=== PATIENT | male | born 1970 | race Caucasian/White ===

== ENCOUNTER 2021-02-21 09:21 | Observation (INO) | payer OTHER, SELFPAY ==
[2021-02-21] VITALS (15 sets, daily range): BP systolic 105–163; BP diastolic 74–98; PULSE 85–103; RESP 14–33; TEMP 36.3–36.8; O2SAT 93–98; BMI 39.4; BMI 38.2
--- NOTE | 2021-02-21 09:23 | NURSING ---
NO OLD EKGS
--- NOTE | 2021-02-21 09:31 | EKG12_ITS ---
Test Reason : CHEST PAIN Blood Pressure : / mmHG Vent. Rate : 104 BPM Atrial Rate : 104 BPM P-R Int : 134 ms QRS Dur : 074 ms QT Int : 324 ms P-R-T Axes : 024 013 067 degrees QTc Int : 426 ms Sinus tachycardia Otherwise normal ECG Confirmed by GENNA BECKETT, NEYMAR ([id number]), restaurant expeditor CLAUDIO DAMON ([id number]) on 02/23/2021 9:54:52 AM Referred By: APRIL Confirmed By:NEYMAR VAIL MD
--- NOTE | 2021-02-21 09:31 | ED.VIS.CHEST ---
HPI History of Present Illness Chief Complaint: Chest Pain Informant: patient Onset/Context/Timing Onset: Today (Within the past hour) Activity at onset: activity on onset (Standing outside in hot humid weather at work) Timing: Continuous Quality: Positive for Heaviness (Like a freight liner sitting on my chest) Location: Substernal (With radiation to left shoulder) Current Severity: Mild Maximum Severity: Severe Worsened By: Nothing; Not Worsened By Movement of Arm, Movement of Torso and Breathing Relieved By: Nothing Associated Symptoms: Positive for Diaphoresis and Dyspnea; Negative for Nausea, Lightheadedness and Palpitations Narrative Narrative: Patient works at a [employer], it was the beginning of the day early in the morning, son was out in hot and humid, he was standing there when he suddenly started feeling weak and short of breath, quickly followed by nonpleuritic chest heaviness and then his left shoulder started hurting with it. He has had no treatment yet, but comes to the emergency department feeling improved compared with earlier but still symptomatic. He is a 2 pack-a-day smoker, history of high blood pressure, edema in his legs for which he is on a diuretic, no known heart disease. He has never had a blood clot in his leg or his lung that he knows of, but he states he travels to a different race track every weekend, this past 1 couple days ago he went to [address] close to [place], [place], which is approximately 4-5 hours away. [facility] Medical History Congestive heart failure (CHF) Hypertension Home Medications hydrochlorothiazide 25 mg PO DAILY 02/21/21 [History Last Taken Unknown] Allergy/AdvReac Type Severity Reaction Status Date / Time No Known Allergies Allergy Verified 02/21/21 09:23 Social History Smoking Status: Current every day smoker tobacco type: cigarettes ROS ROS ED Constitutional Constitutional ED: Reports malaise; Denies chills or fever(s) Eyes Eyes: Denies change in vision or diplopia ENT ENT ED: Denies rhinorrhea or sore throat Cardiovascular Cardiovascular: Reports chest pain; Denies palpitations Respiratory/Chest Respiratory/Chest: Reports cough, dyspnea and other Details: Cough is nonproductive and chronic and no worse than usual Gastrointestinal Gastrointestinal: Denies abdominal pain, diarrhea, nausea or vomiting Genitourinary Genitourinary ED: Denies dysuria or hematuria Musculoskeletal Musculoskeletal: Reports other Details: Left shoulder pain see HPI ; Denies back pain or neck pain Integumentary Denies abscess or rash Neurologic Neurologic: Denies headache(s), paresthesias or weakness Psychiatric Psychiatric: Denies anxiety or suicidal thoughts EXAM Physical Exam Const Vital Signs: 02/21/21 09:23 02/21/21 09:26 02/21/21 09:36 Temperature 98.2 F Temperature Source Oral Pulse Rate 103 H Respiratory Rate 33 H Respiratory Effort Normal Non-Labored Blood Pressure 147/98 H Blood Pressure Mean 114 Pulse Ox 95 93 Oxygen Delivery Method Room Air Room Air 02/21/21 09:44 02/21/21 09:46 02/21/21 10:25 Temperature Temperature Source Pulse Rate 101 H 102 H 100 Respiratory Rate 23 H Respiratory Effort Blood Pressure 163/92 H 132/81 H 105/81 H Blood Pressure Mean 89 Pulse Ox 93 Oxygen Delivery Method Room Air Positive well nourished and well developed General Appearance ED: well developed and NAD HEENT Reports moist mucous membranes normocephalic and atraumatic Eyes PERRL and EOMs intact bilaterally Neck full ROM, supple and no JVD Resp Resp Narrative: Tachypneic no distress. Expiratory wheezes throughout all [place]. No rales or rhonchi. Cardio regular rate, regular rhythm and no murmurs Rate: tachycardic GI non-tender and non-distended GI Narrative: Protuberant with truncal obesity Auscultation: normoactive bowel sounds Palpation: soft Back/Spine no CVA tenderness General Back: other FROM Extremity normal to inspection and full ROM Extremity Narrative: Nontender left shoulder General Extremety ED: Yes edema; Negative for pulses abnormal or tenderness General Extremity: edema bilateral lower extremity Details: trace; Negative for pulses abnormal Neuro oriented x3, CN's II-XII intact bilaterally and no sensory deficits noted Sensorium / Orientation: awake and alert Motor Exam: strength 5/5 throughout Skin no rashes or lesions noted and no wounds Heart Score History: Highly Suspicious ECG: Normal Age: >45 - <65 years Risk Factors: >/= 3 Risk Factors or History of CAD Troponin: </= Normal Limit Score: 5 MDM MDM MDM Narrative Medical decision making narrative: Patient was given a nitroglycerin and did have improvement, his discomfort was barely there and he declined more nitroglycerin after the first 1. He has a negative initial troponin, but he just had symptoms prior to arrival. His D-dimer is within normal limits. His resting tachycardia improved. I am concerned about his symptoms, they are consistent with unstable angina. On further discussion with the patient, he has been having episodes like this, his last one was several days ago but this 1 was worse. This scared him. I think he should be admitted for provocative testing and further evaluation. Discussed with hospitalist who was in agreement and the patient as well. Lab Data Attestation: I reviewed the patient's lab results. Labs: Laboratory Results - last 24 hr 02/21/21 02/21/21 02/21/21 09:25 09:25 09:25 WBC 10.1 RBC 5.38 Hgb 16.2 Hct 48.4 MCV 90.0 MCH 30.1 MCHC 33.5 RDW Std Deviation 42.0 RDW Coeff of Sebastien 12.7 Plt Count 288 MPV 8.9 Immature Gran % (Auto) 0.500 Neut % (Auto) 52.6 Lymph % (Auto) 36.3 [place] % (Auto) 5.8 Eos % (Auto) 3.7 Baso % (Auto) 1.1 H Absolute Neuts (auto) 5.3 Absolute Lymphs (auto) 3.67 Nucleated RBC % 0 D-Dimer Quant (PE/DVT) Sodium 137 Potassium 4.2 Chloride 105 Carbon Dioxide 27.0 Anion Gap 5 BUN 14 Creatinine 0.80 Estim Creat Clear Calc 100.80 Est GFR (MDRD) Af Amer 131 Est GFR (MDRD) Non-Af 108 BUN/Creatinine Ratio 17.4 Glucose 243 H Calcium 8.7 Troponin I High Sens 6 B-Natriuretic Peptide 3.8 02/21/21 09:30 WBC RBC Hgb Hct MCV MCH MCHC RDW Std Deviation RDW Coeff of Sebastien Plt Count MPV Immature Gran % (Auto) Neut % (Auto) Lymph % (Auto) [place] % (Auto) Eos % (Auto) Baso % (Auto) Absolute Neuts (auto) Absolute Lymphs (auto) Nucleated RBC % D-Dimer Quant (PE/DVT) 0.37 Sodium Potassium Chloride Carbon Dioxide Anion Gap BUN Creatinine Estim Creat Clear Calc Est GFR (MDRD) Af Amer Est GFR (MDRD) Non-Af BUN/Creatinine Ratio Glucose Calcium Troponin I High Sens B-Natriuretic Peptide Radiography Chest X-Ray - ED: 1 View, Read by ED Physician and No Acute Disease Diagnostic Testing: Radiology Impression Chest X-Ray 02/21/21 09:55 IMPRESSION: Thickening of the right minor fissure. Increased markings at the left lung base suggestive of either linear atelectasis and/or early infiltrate. Electronically Signed: Danie Brannon MD at 10:28 EDT , Service support , EKG Initial EKG: Interpretation: No Acute Injury Pattern and Sinus Tachycardia Comments: Normal axis and intervals Discharge Plan Triage Chief Complaint: Chest Pain ED Provider: Beny Riddle Dx/Rx/DC Orders Clinical Impression: Unstable angina Prescriptions: No Action hydrochlorothiazide 25 mg tablet 25 mg PO DAILY RF: 0 Primary Care Provider: [facility] Referrals: [facility] [Primary Care Provider] - Disposition Disposition: Acute Care [facility]
[2021-02-21 09:37] LABS: Absolute Lymphocyte Count 3.67 X10^3/uL (0.83-4.51); Absolute Neutrophil Count 5.3 X10^3/uL (2.0-7.7); Basophil# 0.11 X10^3/uL; Basophil% 1.1 % (0-1); Eosinophil# 0.37 X10^3/uL; Eosinophils% 3.7 % (0-5); Hematocrit 48.4 % (40-54); Hemoglobin 16.2 g/dL (13.0-16.5); Lymphocyte # 3.67 X10^3/ul (0.83-4.51); Lymphocyte % 36.3 % (19-41); Mean Corp Hgb Conc 33.5 g/dL (32-36); Mean Corpuscular Hgb 30.1 pg (27.0-32.0); Mean Platelet Vol. 8.9 fl (6.2-12.0); Monocyte# 0.59 X10^3/uL; Monocyte% 5.8 % (0-10); NRBC Flagged by Analyzer 0 % (0-5); Neutrophil # 5.31 X10^3/uL (2.7-7.7); Neutrophil % 52.6 % (47-70); Platelet Count 288 K/mm3 (150-450); RBC Distribution Width CV 12.7 % (11.6-14.6); Red Blood Count 5.38 M/mm3 (4.6-6.2); White Blood Count 10.1 K/mm3 (4.4-11.0)
[2021-02-21] MEDS: Aspirin 81 MG TAB.CHEW 324 MG PO (09:41)
[2021-02-21] MEDS: Nitroglycerin SL (ED/IMG/CATH) 0.4 MG TABLET SL ×2 (09:44→09:46)
[2021-02-21 09:55] LABS: Anion Gap 5 (5-15); BUN 14 mg/dL (7-18); BUN/Creat Ratio 17.4 RATIO (10-20); Calcium,Total 8.7 mg/dL (8.5-10.1); Chloride 105 mmol/L (98-107); EST Glomerular Filtration Rate 108 mL/min (>60); Est Glom Filt Rate - Afr Amer 131 mL/min (>60); Glucose 243 mg/dL (74-106); Potassium 4.2 mmol/L (3.5-5.1); Sodium Level 137 mmol/L (136-145); Troponin-I HS 6 pg/mL (3.0-78.0)
--- NOTE | 2021-02-21 09:55 | RAD_ITS ---
STUDY: X-RAY CHEST REASON FOR EXAM: Male, 50 years old. Chest pain TECHNIQUE: Single AP portable view of the chest. COMPARISON: None. FINDINGS: EKG electrodes are seen. There is elevation of the right hemidiaphragm thickening of the right minor fissure. Mild degree of increased markings at the left lung base suggestive of either basilar atelectasis and/or early infiltrate. There is no demonstrated pleural abnormality. Normal size heart. Normal mediastinum and lilia. Normal visualized pulmonary arteries. Normal visualized aortic arch and descending thoracic aorta. Normal visualized thoracic spine. Normal visualized ribs, clavicles, and shoulders. There is no demonstrated abnormality of the visualized soft tissue structures of the upper abdomen. RAD/Chest 1 View (Portable) IMPRESSION: Thickening of the right minor fissure. Increased markings at the left lung base suggestive of either linear atelectasis and/or early infiltrate. Electronically Signed: Danie Brannon MD at 10:28 EDT , Service support ,
[2021-02-21 09:58] LABS: D-Dimer Quantitative (DVT/PE) 0.37 FEU/ug/m (0.27-0.49)
[2021-02-21 10:09] LABS: BNP,B-Type NATRIURETIC PEPTIDE 3.8 pg/mL (0-100)
--- NOTE | 2021-02-21 11:07 | HP.PCM.HOS_ITS ---
HPI - General General Date of Admission: 02/21/21 Date of Service: 02/21/21 Chief Complaint: Chest pain HPI Narrative BART VALENTE, is a 50 M with past medical history significant for hypertension, prediabetes, obesity with BMI of 39.5, tobacco dependence who presented with chest pain. Patient reports going to work on the morning of his presentation he later developed significant chest pain which he described as as pressure located on the left chest. He also did experience some dizziness as well as radiation of his pain down his right arm. He presented to the emergency department as a result. Initial set of EKG and cardiac enzymes came back unremarkable. On further questioning patient did admit to frequent episodes of chest pain both at rest as well as with activity. He was admitted to monitored bed for subsequent inpatient management. [facility] Medical History (Updated 02/21/21 @ 11:[address] José Antonio Mo MD) Congestive heart failure (CHF) Hypertension Home Medications hydrochlorothiazide 25 mg PO DAILY 02/21/21 [History Last Taken Unknown] Allergy/AdvReac Type Severity Reaction Status Date / Time No Known Allergies Allergy Verified 02/21/21 09:23 Family History (Updated 02/21/21 @ 11:[address] José Antonio Mo MD) Father Heart disease Social History Smoking Status: Current every day smoker tobacco type: cigarettes ROS ROS Narrative GENERAL: denies fever, chills, night sweats, HEENT: denies headache, sinus congestion, RESPIRATORY: d shortness of breath, dyspnea on exertion CARDIAC: chest pain, GASTROINTESTINAL: denies abdominal pain, GENITOURINARY: denies dysuria, urgency, frequency, EXTREMITY: denies swelling MUSCULOSKELETAL: denies current joint pain or tenderness NEUROLOGIC: denies focal numbness, weakness, tingling HEMATOLOGIC: denies easy bruising and/or hemorrhage INTEGUMENT: denies rashes PSYCHIATRIC: denies suicidal or homicidal ideation Vital Signs Vital Signs Vital Signs: 02/21/21 09:23 02/21/21 09:26 02/21/21 09:36 Temperature 98.2 F Temperature Source Oral Pulse Rate 103 H Respiratory Rate 33 H Respiratory Effort Normal Non-Labored Blood Pressure 147/98 H Blood Pressure Mean 114 Pulse Ox 95 93 Oxygen Delivery Method Room Air Room Air 02/21/21 09:44 02/21/21 09:46 02/21/21 10:25 Temperature Temperature Source Pulse Rate 101 H 102 H 100 Respiratory Rate 23 H Respiratory Effort Blood Pressure 163/92 H 132/81 H 105/81 H Blood Pressure Mean 89 Pulse Ox 93 Oxygen Delivery Method Room Air Weight Weight: 110.9 kg Body Mass Index (BMI) 39.4 Physical Exam Narrative GENERAL: cooperative HEENT: Atraumatic; EYES; Anicteric, Normal Conjunctiva NECK; supple, normal thyroid, RESPIRATORY: Diminished to auscultation CARDIOVASCULAR: Regular S1 S2, GI: soft, normoactive bowel sounds, : No Renal angle tenderness; EXTREMITIES: No edema, no clubbing, MUSCULOSKELETAL: no muscle waisting NEURO: Awake; no lateralizing signs. SKIN: No Rash PSYCH; Flat affect Results Lab / Micro Data Result Diagrams: 02/21/21 09:25 02/21/21 09:25 Labs: Laboratory Results - last 24 hr 02/21/21 09:25: WBC 10.1, RBC 5.38, Hgb 16.2, Hct 48.4, MCV 90.0, MCH 30.1, MCHC 33.5, RDW Std Deviation 42.0, RDW Coeff of Sebastien 12.7, Plt Count 288, MPV 8.9, Immature Gran % (Auto) 0.500, Neut % (Auto) 52.6, Lymph % (Auto) 36.3, [place] % (Auto) 5.8, Eos % (Auto) 3.7, Baso % (Auto) 1.1 H, Absolute Neuts (auto) 5.3, Absolute Lymphs (auto) 3.67, Nucleated RBC % 0 02/21/21 09:25: Sodium 137, Potassium 4.2, Chloride 105, Carbon Dioxide 27.0, Anion Gap 5, BUN 14, Creatinine 0.80, Estim Creat Clear Calc 100.80, Est GFR (MDRD) Af Amer 131, Est GFR (MDRD) Non-Af 108, BUN/Creatinine Ratio 17.4, Glucose 243 H, Calcium 8.7, Troponin I High Sens 6 02/21/21 09:25: B-Natriuretic Peptide 3.8 02/21/21 09:30: D-Dimer Quant (PE/DVT) 0.37 Radiology Impression Chest X-Ray 02/21/21 09:55 IMPRESSION: Thickening of the right minor fissure. Increased markings at the left lung base suggestive of either linear atelectasis and/or early infiltrate. Electronically Signed: Danie Brannon MD at 10:28 EDT , Service support , Assessment & Plan Assessment/Plan (1) Unstable angina: (2) Hypertension: (3) Diabetes mellitus, type 2: (4) Obesity (BMI 35.0-39.9 without comorbidity): (5) Tobacco dependence: PLAN: Patient is a 50-year-old gentleman presenting with chest pain 1. Chest pain ?Patient initial set of EKG cardiac enzymes came back unremarkable however his history is of significant concern and admitted to a monitored bed repeat EKG and serial cardiac enzymes ordered. Also did request for 2D echo. Given the nature of patient presentation consult was placed to cardiology. Decision as to whether patient undergoes further evaluation either by nuclear stress test or left heart catheterization deferred to cardiology 2. New onset diabetes mellitus type 2 ?Patient presented blood glucose level was 243. He had previously been diagnosed with prediabetes according to him however currently not on any medications. Did order hemoglobin A1c and patient placed on Accu-Cheks before meals and at bedtime with sliding scale coverage 3. Hypertension - Blood pressure controlled, home medications continued with dose adjustment as needed 4. Obesity with BMI of 39.5 ?Weight loss advised 5. Tobacco dependence - Counseled on cessation, offered nicotine patch for tobacco cravings 6. DVT prophylaxis - On enoxaparin Charges/Coding Visit Charges OBSV E&M: 64315 Initial observation care L3
--- NOTE | 2021-02-21 11:10 | NURSING ---
DR ANDREA IN ER
--- NOTE | 2021-02-21 11:18 | NURSING ---
PCU OBS KITTOE UNSTABLE ANGINA
--- NOTE | 2021-02-21 11:23 | NURSING ---
CALLED LORY VEGA. TALKED TO PRO IN BED CONTROL. GAVE HER THE INFO WILL FAX CHART TO [phone]
--- NOTE | 2021-02-21 11:51 | EKG12_ITS ---
Test Reason : Blood Pressure : / mmHG Vent. Rate : 088 BPM Atrial Rate : 088 BPM P-R Int : 144 ms QRS Dur : 084 ms QT Int : 358 ms P-R-T Axes : 024 007 034 degrees QTc Int : 433 ms Sinus rhythm with occasional Premature ventricular complexes Otherwise normal ECG Confirmed by GENNA BECKETT, NEYMAR ([id number]), subeditor CLAUDIO DAMON ([id number]) on 02/23/2021 10:10:46 AM Referred By: ALCIDES Confirmed By:NEYMAR VAIL MD
--- NOTE | 2021-02-21 11:51 | ECHOD_ITS ---
Reason For Study: CHEST PAIN Procedure This was a 2D Doppler, Color Flow transthoracic echocardiogram. The study was technically difficult. Exam performed portable in patient room. Left Ventricle Normal LV size. Left ventricular systolic function is normal. The estimated ejection fraction is 65 %. Transmitral doppler flow suggestive of impaired relaxation of left ventricle. No regional wall motion abnormalities noted. Right Ventricle Normal RV size. Normal systolic function. Atria Normal left atrium. Normal right atrium. No doppler evidence for ASD. Mitral Valve There is no mitral annular calcification. Normal mitral valve. Trivial mitral valve insufficiency. Tricuspid Valve Normal tricuspid valve. Trivial tricuspid valve insufficiency. Right ventricular systolic pressure estimated to be 30 mmHg. Aortic Valve Trisinus/trileaflet aortic valve. Normal aortic valve. Pulmonic Valve The pulmonic valve is not well visualized. Trivial pulmonic valve insufficiency. Great Vessels Normal sized aortic root. Pericardium/Pleural No pericardial effusion. MMode/2D Measurements & Calculations LVIDd: 4.2 cm IVSd: 1.0 cm Ao root diam: 2.9 cm LVIDs: 3.1 cm LVPWd: 1.1 cm RVDd: 3.3 cm FS: 26.6 % LAV(MOD-bp): 46.1 ml LA A4 area: 15.0 cm2 LA dimension(2D): 3.4 cm LAV(MOD-bp) Indexed: 21.2 ml/m2 LAV(MOD-sp2): 41.8 ml LAV(MOD-sp4): 42.3 ml RA A4 area: 12.6 cm2 Time Measurements MV dec time: 0.19 sec Doppler Measurements & Calculations MV E max pepe: 51.5 cm/sec Lat Peak E' Pepe: 10.2 cm/sec Med Peak E' Pepe: 9.2 cm/sec MV A max pepe: 57.3 cm/sec E/E' lat: 5.1 E/E' med: 5.6 MV E/A: 0.90 Ao V2 max: 132.2 cm/sec LV V1 max: 125.1 cm/sec PA V2 max: 98.3 cm/sec Ao max P.6 mmHg LV V1 max P.3 mmHg TR max pepe: 261.9 cm/sec TR max P.4 mmHg ECHO/Echo Complete Interpretation Summary The study was technically difficult. Left ventricular systolic function is normal. The estimated ejection fraction is 65 %. Trivial mitral valve insufficiency. Trivial tricuspid valve insufficiency. Trivial pulmonic valve insufficiency. Right ventricular systolic pressure estimated to be 30 mmHg. Transmitral doppler flow suggestive of impaired relaxation of left ventricle Ordering Physician: José Antonio Mo Referring Physician: [facility] Performed By: Fabby Maldonado RDCS, RVT
[2021-02-21 12:38] LABS: Troponin-I HS 5 pg/mL (3.0-78.0)
[2021-02-21] MEDS: Enoxaparin 40 MG/0.4 ML Syringe SC ×2 (12:39→21:24)
[2021-02-21 12:55] LABS: Bedside Glucose 149 mg/dL (70-110)
[2021-02-21 13:14] LABS: Probe Check PASS; Specimen Processing Control PASS
--- NOTE | 2021-02-21 14:53 | PCM.CONS.C ---
Assessment & Plan Assessment/Plan (1) Unstable angina: PLAN: The patient presents with symptoms concerning for unstable angina pectoris superimposed upon multiple cardiovascular risk factors. At the moment his cardiac enzymes are negative and his ECG demonstrates no acute changes. He will continue to be monitored. He will continue medical therapy as deemed appropriate. Internal medicine has requested cardiovascular consultation to consider further evaluation with diagnostic cardiac catheterization. This may not be unreasonable based upon the aforementioned information. The procedure and risk was discussed with the patient. He was agreeable to this approach. (2) Hypertension: PLAN: The patient has a history of hypertension. He will continue medical therapy with adjustment as deemed appropriate. (3) Diabetes mellitus, type 2: PLAN: The patient will continue evaluation care per internal medicine. (4) Tobacco dependence: PLAN: The patient has been encouraged to discontinue his tobacco use. (5) Obesity (BMI 35.0-39.9 without comorbidity): PLAN: Unfortunately the patient is obese. He states he is trying to adjust his diet to bring his medical diagnoses and his weight under better control. Addt'l Comments The patient's case has been discussed and reviewed with the patient and Dr. Mo. This note was generated using a voice recognition system and there may be incorrect words, spelling or punctuation that were not noted when reviewing the office note prior to saving. HPI Consult Data Date of Consult: 02/21/21 HPI Narrative HPI Narrative: BART VALENTE, is a 50 year old white male who presents for cardiovascular consultation based upon concerns of unstable angina pectoris superimposed upon a history of hypertension, diabetes mellitus, tobacco dependence, and a family history of premature cardiovascular disease. The patient states that he has been having episodes of nonexertional chest discomfort rating to his left shoulder and left upper extremity associated with shortness of breath/dyspnea and diaphoresis. He had another such episode today at work. He states he drove himself to the hospital. He was evaluated by the emergency department staff and by internal medicine. He was thought to have concerns of unstable angina pectoris. He was placed in the PCU for further evaluation and care. His initial cardiac enzymes were negative. His ECG demonstrated sinus rhythm with no acute ECG changes. He states he follows through the [facility]. He knows they have been adjusting his medicines to assist with blood pressure control. They have been encouraging him on dietary adjustments to assist with diabetes mellitus control. He also states that he has a family history of premature cardiovascular disease with each generation experiencing some cardiovascular event and/or earlier than the previous generation. He denies any orthopnea or PND. He states he has had waxing and waning peripheral pitting edema in the past. There is been no near syncope or syncope. He states that he feels better at the moment. [facility] Medical History (Updated 02/21/21 @ 11:[address] José Antonio Mo MD) Congestive heart failure (CHF) Hypertension Home Medications aspirin 81 mg PO DAILY 02/21/21 [History Last Taken Unknown] celecoxib [Celebrex] 200 mg PO DAILY 02/21/21 [History Last Taken Unknown] gabapentin 200 mg PO QHS PRN 02/21/21 [History Last Taken Unknown] hydrochlorothiazide 25 mg PO DAILY 02/21/21 [History Last Taken Unknown] losartan 25 mg PO DAILY 02/21/21 [History Last Taken Unknown] sertraline [Zoloft] 50 mg PO QHS 02/21/21 [History Last Taken Unknown] Allergy/AdvReac Type Severity Reaction Status Date / Time No Known Allergies Allergy Verified 02/21/21 09:23 Family History (Updated 02/21/21 @ 11:[address] José Antonio Mo MD) Father Heart disease Social History Smoking Status: Current every day smoker tobacco type: cigarettes ROS Constitutional Constitutional: Reports as per HPI Eyes Eyes: Reports as per HPI ENT HEENT: Reports as per HPI Cardiovascular Cardiovascular: Reports chest pain, chest pain at rest, diaphoresis, dyspnea and dyspnea at rest Respiratory/Chest Respiratory/Chest: Reports dyspnea Gastrointestinal Gastrointestinal: Reports as per HPI Genitourinary Genitourinary: Reports as per HPI Musculoskeletal Musculoskeletal: Reports as per HPI Integumentary Integumentary: Reports as per HPI Neurologic Neurologic: Reports as per HPI Physical Exam Const alert, oriented x3 and no apparent distress Orientation / Consciousness: awake HEENT normocephalic, head/scalp atraumatic and hearing grossly normal bilaterally Eyes PERRL, EOMs intact bilaterally and conjunctivae normal Neck full ROM, supple and no JVD Resp normal respiratory effort and clear to auscultation bilaterally Cardio regular rate, regular rhythm, S1 normal heart sound and S2 normal heart sound GI normal to inspection, nondistended, normoactive bowel sounds Extremity General Extremity: edema bilateral lower extremity Details: trace Neuro CN's II-XII intact bilaterally Objective Data Vital Signs: Vital Signs Temp Pulse Resp BP Pulse Ox 98.1 F 87 18 141/92 H 95 02/21/21 12:22 02/21/21 12:22 02/21/21 12:22 02/21/21 12:22 02/21/21 12:22 Oxygen Delivery Method Room Air Weight: 236 lb 12.423 oz Body Mass Index (BMI) 38.2 Lab / Micro Data Result Diagrams: 02/21/21 09:25 02/21/21 09:25 Labs: Laboratory Results - last 24 hr 02/21/21 09:25: WBC 10.1, RBC 5.38, Hgb 16.2, Hct 48.4, MCV 90.0, MCH 30.1, MCHC 33.5, RDW Std Deviation 42.0, RDW Coeff of Sebastien 12.7, Plt Count 288, MPV 8.9, Immature Gran % (Auto) 0.500, Neut % (Auto) 52.6, Lymph % (Auto) 36.3, [place] % (Auto) 5.8, Eos % (Auto) 3.7, Baso % (Auto) 1.1 H, Absolute Neuts (auto) 5.3, Absolute Lymphs (auto) 3.67, Nucleated RBC % 0 02/21/21 09:25: Sodium 137, Potassium 4.2, Chloride 105, Carbon Dioxide 27.0, Anion Gap 5, BUN 14, Creatinine 0.80, Estim Creat Clear Calc 100.80, Est GFR (MDRD) Af Amer 131, Est GFR (MDRD) Non-Af 108, BUN/Creatinine Ratio 17.4, Glucose 243 H, Calcium 8.7, Troponin I High Sens 6 02/21/21 09:25: B-Natriuretic Peptide 3.8 02/21/21 09:30: D-Dimer Quant (PE/DVT) 0.37 02/21/21 11:27: COVID-19 (HINA) Negative 02/21/21 12:07: Troponin I High Sens 5 02/21/21 12:47: POC Glucose 149 H Cardiology Labs/Tests 02/21/21 09:25: WBC 10.1, RBC 5.38, Hgb 16.2, Hct 48.4, MCV 90.0, MCH 30.1, MCHC 33.5, Plt Count 288, MPV 8.9, Immature Gran % (Auto) 0.500, Neut % (Auto) 52.6, Lymph % (Auto) 36.3, [place] % (Auto) 5.8, Eos % (Auto) 3.7, Baso % (Auto) 1.1 H, Absolute Neuts (auto) 5.3, Nucleated RBC % 0 02/21/21 09:25: Sodium 137, Potassium 4.2, Chloride 105, Carbon Dioxide 27.0, Anion Gap 5, BUN 14, Creatinine 0.80, Est GFR (MDRD) Af Amer 131, Est GFR (MDRD) Non-Af 108, BUN/Creatinine Ratio 17.4, Glucose 243 H, Calcium 8.7 02/21/21 09:25: B-Natriuretic Peptide 3.8 02/21/21 09:30: D-Dimer Quant (PE/DVT) 0.37 Rhythm: Sinus rhythm EKG: Sinus rhythm Radiography Diagnostic Testing: Radiology Impression Chest X-Ray 02/21/21 09:55 IMPRESSION: Thickening of the right minor fissure. Increased markings at the left lung base suggestive of either linear atelectasis and/or early infiltrate. Electronically Signed: Danie Brannon MD at 10:28 EDT , Service support ,
[2021-02-21] MEDS: Metoprolol Tartrate 25 MG Tablet PO ×2 (15:38→21:25)
[2021-02-21 16:32] LABS: Hemoglobin A1c 6.6 % (3.8-5.6)
[2021-02-21 16:33] LABS: Troponin-I HS 6 pg/mL (3.0-78.0)
[2021-02-21] MEDS: Insulin Lispro 100 UNIT/ML INSULN.PEN SC ×2 (17:00→21:25)
[2021-02-21 17:06] LABS: Bedside Glucose 205 mg/dL (70-110)
[2021-02-21] MEDS: Acetaminophen 325 MG Tablet 650 MG PO (18:51)
--- NOTE | 2021-02-21 20:57 | PCS.PANDOC ---
PANDEMIC DOCUMENTATION INITIATED: Date: 02/21/2021 Time: [id number]
[2021-02-21] MEDS: Atorvastatin Calcium 40 MG Tablet PO (21:25)
[2021-02-21] MEDS: Sertraline 50 MG Tablet PO (21:26)
[2021-02-21 21:31] LABS: Bedside Glucose 222 mg/dL (70-110)
[2021-02-22] VITALS (11 sets, daily range): BP systolic 109–130; BP diastolic 70–96; PULSE 69–82; RESP 14–16; TEMP 36.3–36.5; O2SAT 92–95
--- NOTE | 2021-02-22 05:55 | EKG12_ITS ---
Test Reason : AM EKG Blood Pressure : / mmHG Vent. Rate : 072 BPM Atrial Rate : 072 BPM P-R Int : 152 ms QRS Dur : 086 ms QT Int : 382 ms P-R-T Axes : 030 032 039 degrees QTc Int : 418 ms Normal sinus rhythm Normal ECG When compared with ECG of 21-FEB-2021 12:05, MANUAL COMPARISON REQUIRED, DATA IS UNCONFIRMED Confirmed by JULIA BECKETT, BENJA ([id number]), magazine editor CLAUDIO DAMON ([id number]) on 02/23/2021 11:00:05 AM Referred By: ZULLY Confirmed By:BENJA DUMONT MD
[2021-02-22] MEDS: Aspirin E.C. 81 MG Tablet PO (06:05)
[2021-02-22] MEDS: Metoprolol Tartrate 25 MG Tablet PO (06:05)
[2021-02-22 06:06] LABS: Absolute Lymphocyte Count 3.52 X10^3/uL (0.83-4.51); Absolute Neutrophil Count 3.6 X10^3/uL (2.0-7.7); Basophil# 0.14 X10^3/uL; Basophil% 1.6 % (0-1); Eosinophil# 0.47 X10^3/uL; Eosinophils% 5.5 % (0-5); Hemoglobin 16.6 g/dL (13.0-16.5); Lymphocyte # 3.52 X10^3/ul (0.83-4.51); Lymphocyte % 41.1 % (19-41); Mean Corp Hgb Conc 33.9 g/dL (32-36); Mean Corpuscular Hgb 30.6 pg (27.0-32.0); Mean Corpuscular Volume 90.4 fL (80-94); Mean Platelet Vol. 8.9 fl (6.2-12.0); Monocyte# 0.76 X10^3/uL; Monocyte% 8.9 % (0-10); NRBC Flagged by Analyzer 0 % (0-5); Neutrophil # 3.62 X10^3/uL (2.7-7.7); Neutrophil % 42.3 % (47-70); Platelet Count 275 K/mm3 (150-450); RBC Distribution Width CV 12.6 % (11.6-14.6); RBC Distribution Width SD 41.7 fl (35.1-43.9); Red Blood Count 5.42 M/mm3 (4.6-6.2); White Blood Count 8.6 K/mm3 (4.4-11.0)
[2021-02-22] MEDS: Losartan Potassium 25 MG Tablet PO ×2 (06:06→08:45)
[2021-02-22] MEDS: 0.9% Saline Lock 10 ML Syringe IV (06:13)
[2021-02-22 06:31] LABS: Bedside Glucose 128 mg/dL (70-110)
[2021-02-22 06:41] LABS: Anion Gap 5 (5-15); BUN 15 mg/dL (7-18); BUN/Creat Ratio 24.5 RATIO (10-20); Calcium,Total 8.7 mg/dL (8.5-10.1); Chloride 107 mmol/L (98-107); Cholesterol 108 mg/dL (200); Creatinine, Serum 0.61 mg/dL (0.70-1.30); EST Glomerular Filtration Rate 148 mL/min (>60); Est Glom Filt Rate - Afr Amer 179 mL/min (>60); Estimated Creatinine Clearance 132.19 ml/min; Glucose 124 mg/dL (74-106); High Density Lipoprotein 33 mg/dL; Potassium 4.2 mmol/L (3.5-5.1); Sodium Level 136 mmol/L (136-145); Triglycerides 203 mg/dL; Very Low Density Lipoprotein 41 mg/dL (5-40)
--- NOTE | 2021-02-22 06:46 | NURSING ---
report called to Nikoaly CUNHA in [place]. JOURNEYMAN WELDER Nancy taking pt down to procedure at this time.
--- NOTE | 2021-02-22 08:15 | CL.D_ITS ---
Patient Name: BART VALENTE Study Date: 02/22/2021 Performing: Christiano Vinson MD Ht: 66 inches 168 cm : 1970 Wt: 236.2 lbs 107 kg Age: 50 Gender: male BSA: 2.15 PROCEDURE(S) PERFORMED EY75-YHD/COR/LV CLINICAL PROFILE AND INDICATIONS Indications: Worsening Angina, Suspected CAD Heart Failure: None Stress/Imaging Stress/Image Study Performed: No Angina Classification Anginal Classification w/in 2 Weeks: CCS IV CAD Presentations: Unstable angina. CONCLUSIONS Elevated Left Ventricular End Diastolic Pressure Normal LV size, wall motion,and systolic function LVEF: by LV gram 65 % Single vessel CAD of the RCA: proximal: eccentric: 10 - 25 % stenosis RECOMMENDATIONS Risk factor modification Medical therapy DESCRIPTION OF PROCEDURE The patient arrived to the procedure lab. The risks and benefits of the procedure as well as a full d escription of our services here and current unavailability of surgical backup were fully explained to the patient and/or their significant other prior to the catheterization. The Timeout was completed, verifying the correct patient and procedure. The patient's procedural site was prepped and draped in the usual fashion. Local anesthetic was given subcutaneously to right radial region with Lidocaine 2% . Using a modified Seldinger technique, arterial access was obtained via the right radial artery, a 6 Fr sheath was inserted. Left Coronary Artery selective angiography was performed in multiple views u sing a 5 Fr. 4.0 [place] catheter. Right Coronary Artery selective angiography was then performed in mu ltiple views using a 5 Fr. JR 4 catheter.The arterial sheath was pulled and a TR Band was applied for hemostasis CORONARY ANGIOGRAPHY DOMINANCE: Right Dominant LEFT HEART ASSESSMENT Left Ventricular Ejection Fraction: by LV Gram 65 % Normal LV wall motion Elevated Left Ventricular End Diastolic Pressure LVEDP: 25 mmHg LEFT MAIN: Angiographically normal LEFT ANTERIOR DESCENDING ARTERY: Angiographically normal CIRCUMFLEX ARTERY: Angiographically normal RIGHT CORONARY ARTERY: PROX RCA: eccentric: 10 - 25 % Stenosis AORTIC ROOT: Angiographically normal COMPLICATIONS No Complications PROCEDURE MEDICATIONS Versed 1 mg IV Fentanyl 50 mcg IV Versed 1 mg IV Fentanyl 50 mcg IV Oxygen: 2 L/min via nasal cannula Heparin given IA 02/22/2021 07:36:11 Verapamil 2.5mg, Ntg 100mcgs, 3000 units of Heparin given IA 02/22/2021 07:36:11 SUMMARY OF HEMODYNAMIC DATA Time AIR REST ECG 07:14:05 Art 132/78 (99) 07:30:54 AO 127/91 (107) SA 07:38:10 LV 131/1, 29 07:50:24 LV 127/1, 25 07:50:31 LV 126/1, 24 07:51:21 LV 125/1, 22 07:51:44 LV 128/0, 24 07:51:53 LVp 128/0, 25 07:51:58 AOp 118/76 (94) 07:52:03 Signed By Christiano Vinson MD On 02/22/2021 08:14:13 Christiano Vinson MD
[2021-02-22] MEDS: hydroCHLOROthiazide 25 MG Tablet PO (08:45)
[2021-02-22] MEDS: Celecoxib 200 MG Capsule PO (08:45)
--- NOTE | 2021-02-22 09:54 | PCM.DC.SUM ---
Providers Date of Admission: 02/21/21 Primary Care Physician: [facility] Consultations 02/21/21 11:51 Consult: Cardiology Routine Consulting Provider: Christiano Vinson Reason for Consult: CHEST PAIN EMERGENT Consult: No MD Notified: Yes Date Notified: 02/21/21 Time Notified: 11:36 Method of Notification: Verbal Method of Consult:: In-Person Reason For Visit: CHEST PAIN Diagnosis Discharge Diagnosis (1) Unstable angina: Status: Acute Code(s): I20.0 - Unstable angina (2) Hypertension: Status: Chronic Code(s): I10 - Essential (primary) hypertension (3) Diabetes mellitus, type 2: Status: Acute Code(s): E11.9 - Type 2 diabetes mellitus without complications (4) Tobacco dependence: Status: Acute Code(s): F17.200 - Nicotine dependence, unspecified, uncomplicated (5) Obesity (BMI 35.0-39.9 without comorbidity): Status: Acute Code(s): E66.9 - Obesity, unspecified Medications at Discharge Home Medications aspirin 81 mg PO DAILY 02/21/21 celecoxib [Celebrex] 200 mg PO DAILY 02/21/21 gabapentin 200 mg PO QHS PRN 02/21/21 hydrochlorothiazide 25 mg PO DAILY 02/21/21 sertraline [Zoloft] 50 mg PO QHS 02/21/21 atorvastatin 40 mg PO QHS #90 tab 02/22/21 losartan 50 mg PO DAILY #90 tab 02/22/21 metformin 1,000 mg PO BID #180 tab 02/22/21 Hospital Course Summary of Care Provided Minutes Spent on Discharge: 35 Hospital Course: 1. Chest pain ?Patient initial set of EKG cardiac enzymes came back unremarkable however his history is of significant concern and admitted to a monitored bed repeat EKG and serial cardiac enzymes ordered. Also did request for 2D echo. Given the nature of patient presentation consult was placed to cardiology. Decision as to whether patient undergoes further evaluation either by nuclear stress test or left heart catheterization deferred to cardiology ?Patient was seen in consultation by Dr. Vinson with cardiology left heart catheterization was performed which demonstrated normal LV with approximately 10 to 25% RCA lesion otherwise normal appearing coronary arteries. 2. New onset diabetes mellitus type 2 ?Patient presented blood glucose level was 243. He had previously been diagnosed with prediabetes according to him however currently not on any medications. Did order hemoglobin A1c and patient placed on Accu-Cheks before meals and at bedtime with sliding scale coverage -Patient did receive diabetic education. Prescription written for Metformin on discharge 3. Hypertension - Blood pressure controlled, home medications continued with dose adjustment as needed 4. Obesity with BMI of 39.5 ?Weight loss advised 5. Tobacco dependence - Counseled on cessation, offered nicotine patch for tobacco cravings 6. DVT prophylaxis - On enoxaparin Physical Exam Narrative GENERAL: cooperative HEENT: Atraumatic; EYES; Anicteric, Normal Conjunctiva NECK; supple, normal thyroid, RESPIRATORY: Diminished to auscultation CARDIOVASCULAR: Regular S1 S2, GI: soft, normoactive bowel sounds, : No Renal angle tenderness; EXTREMITIES: No edema, no clubbing, MUSCULOSKELETAL: no muscle waisting NEURO: Awake; no lateralizing signs. SKIN: No Rash PSYCH; Flat affect Weight / BMI Weight Weight: 107.4 kg Body Mass Index (BMI) 38.2 ABG / Lab / Microbiology Data Result Diagrams: 02/22/21 05:38 02/22/21 05:38 Laboratory: Laboratory Results - last 24 hr 02/21/21 09:25: Sodium 137, Potassium 4.2, Chloride 105, Carbon Dioxide 27.0, Anion Gap 5, BUN 14, Creatinine 0.80, Estim Creat Clear Calc 100.80, Est GFR (MDRD) Af Amer 131, Est GFR (MDRD) Non-Af 108, BUN/Creatinine Ratio 17.4, Glucose 243 H, Calcium 8.7, Troponin I High Sens 6 02/21/21 09:25: B-Natriuretic Peptide 3.8 02/21/21 09:30: D-Dimer Quant (PE/DVT) 0.37 02/21/21 11:27: COVID-19 (HINA) Negative 02/21/21 12:07: Troponin I High Sens 5 02/21/21 12:47: POC Glucose 149 H 02/21/21 15:45: Troponin I High Sens 6 02/21/21 15:45: Hemoglobin A1c 6.6 H 02/21/21 16:59: POC Glucose 205 H 02/21/21 21:22: POC Glucose 222 H 02/22/21 05:38: WBC 8.6, RBC 5.42, Hgb 16.6 H, Hct 49.0, MCV 90.4, MCH 30.6, MCHC 33.9, RDW Std Deviation 41.7, RDW Coeff of Sebastien 12.6, Plt Count 275, MPV 8.9, Immature Gran % (Auto) 0.600, Neut % (Auto) 42.3 L, Lymph % (Auto) 41.1 H, [place] % (Auto) 8.9, Eos % (Auto) 5.5 H, Baso % (Auto) 1.6 H, Absolute Neuts (auto) 3.6, Absolute Lymphs (auto) 3.52, Nucleated RBC % 0 02/22/21 05:38: Sodium 136, Potassium 4.2, Chloride 107, Carbon Dioxide 24.0, Anion Gap 5, BUN 15, Creatinine 0.61 L, Estim Creat Clear Calc 132.19, Est GFR (MDRD) Af Amer 179, Est GFR (MDRD) Non-Af 148, BUN/Creatinine Ratio 24.5 H, Glucose 124 H, Calcium 8.7, Triglycerides 203 H, Cholesterol 108, LDL Cholesterol 34, VLDL Cholesterol 41 H, HDL Cholesterol 33 L 02/22/21 06:10: POC Glucose 128 H Radiography Diagnostic Testing: Radiology Impression Chest X-Ray 02/21/21 09:55 IMPRESSION: Thickening of the right minor fissure. Increased markings at the left lung base suggestive of either linear atelectasis and/or early infiltrate. Electronically Signed: Danie Brannon MD at 10:28 EDT , Service support , Echocardiogram 02/21/21 11:51 Interpretation Summary The study was technically difficult. Left ventricular systolic function is normal. The estimated ejection fraction is 65 %. Trivial mitral valve insufficiency. Trivial tricuspid valve insufficiency. Trivial pulmonic valve insufficiency. Right ventricular systolic pressure estimated to be 30 mmHg. Transmitral doppler flow suggestive of impaired relaxation of left ventricle Ordering Physician: José Antonio Mo Referring Physician: [facility] Performed By: Fabby Maldonado RDCS, RVT D/C Instructions Discharge Diet: 1800 Calorie Control Diet Discharge Activity: Return to Normal Activity Call your doctor if you observe: Fever of 101 or Higher, Shortness of breath, Fainting spells and Chest pain Meaningful Use Info Meaningful Use Diagnoses (Choose all that apply): None applicable Discharge Plan Admission Admit Date/Time: 02/21/21 11:39 Attending Provider: José Antonio Mo Primary Care Provider: [facility] Consulting Providers: Christiano Vinson Instructions Forms: Work / School Excuse Patient Instructions: ED Chest Pain, Noncardiac Discharge Orders/Prescriptions Prescriptions: New metformin 1,000 mg tablet 1,000 mg PO BID Qty: 180 RF: 0 atorvastatin 40 mg tablet 40 mg PO QHS Qty: 90 RF: 0 losartan 50 mg Tablet 50 mg PO DAILY Qty: 90 RF: 0 Continued hydrochlorothiazide 25 mg tablet 25 mg PO DAILY RF: 0 celecoxib [Celebrex] 200 mg Capsule 200 mg PO DAILY RF: 0 sertraline [Zoloft] 50 mg Tablet 50 mg PO QHS RF: 0 gabapentin 100 mg Tablet 200 mg PO QHS PRN (Reason: Pain) RF: 0 aspirin 81 mg Tablet 81 mg PO DAILY RF: 0 Discontinued losartan 25 mg Tablet 25 mg PO DAILY RF: 0 Referrals / Follow Up: [facility] [Primary Care Provider] - Disposition Disposition (needs filled in before D/C Order can be placed): Home, Self Care Charges/Coding Visit Charges OBSV E&M: 35213 Observation care discharge
--- NOTE | 2021-02-22 11:29 | PHA.DC.MC ---
Pharmacy Service has performed discharge medication reconciliation and counseling for this patient. 1. ATORVASTATIN 40MG PO QHS 2. METFORMIN 1000MG PO BID The patient's discharge medication list was reviewed for discrepancies and discrepancies were resolved. Home Medications aspirin 81 mg PO DAILY 02/21/21 celecoxib [Celebrex] 200 mg PO DAILY 02/21/21 gabapentin 200 mg PO QHS PRN 02/21/21 hydrochlorothiazide 25 mg PO DAILY 02/21/21 sertraline [Zoloft] 50 mg PO QHS 02/21/21 atorvastatin 40 mg PO QHS #90 tab 02/22/21 losartan 50 mg PO DAILY #90 tab 02/22/21 metformin 1,000 mg PO BID #180 tab 02/22/21 The patient was counseled on the following discharge medications and changes in medications for homegoing were reviewed. The Reason for Use, instructions for use, and potential side effects were reviewed for all new medications. The patient's questions regarding all of their medications were answered. The patient was able to verbally demonstrate an understanding of their discharge medications.
--- NOTE | 2021-02-22 20:19 | PCM.PN.CARD ---
Subjective Subjective The patient was evaluated earlier this day. He underwent diagnostic cardiac catheterization without adverse event. Objective Data Vital Signs: Vital Signs Temp Pulse Resp BP Pulse Ox 97.7 F L 71 16 112/96 H 93 02/22/21 09:30 02/22/21 10:30 02/22/21 10:30 02/22/21 10:30 02/22/21 10:30 Oxygen Delivery Method Room Air Weight: 236 lb 12.423 oz Body Mass Index (BMI) 38.2 Intake & Output: Intake and Output for Last 24 Hours 02/20/21 02/21/21 02/22/21 23:59 23:59 23:59 Intake Total 500 / 800 320 / 320 Output Total Balance 500 / 800 319 / 319 Lab / Micro Data Result Diagrams: 02/22/21 05:38 02/22/21 05:38 Labs: Laboratory Results - last 24 hr 02/21/21 21:22: POC Glucose 222 H 02/22/21 05:38: WBC 8.6, RBC 5.42, Hgb 16.6 H, Hct 49.0, MCV 90.4, MCH 30.6, MCHC 33.9, RDW Std Deviation 41.7, RDW Coeff of Sebastien 12.6, Plt Count 275, MPV 8.9, Immature Gran % (Auto) 0.600, Neut % (Auto) 42.3 L, Lymph % (Auto) 41.1 H, [place] % (Auto) 8.9, Eos % (Auto) 5.5 H, Baso % (Auto) 1.6 H, Absolute Neuts (auto) 3.6, Absolute Lymphs (auto) 3.52, Nucleated RBC % 0 02/22/21 05:38: Sodium 136, Potassium 4.2, Chloride 107, Carbon Dioxide 24.0, Anion Gap 5, BUN 15, Creatinine 0.61 L, Estim Creat Clear Calc 132.19, Est GFR (MDRD) Af Amer 179, Est GFR (MDRD) Non-Af 148, BUN/Creatinine Ratio 24.5 H, Glucose 124 H, Calcium 8.7, Triglycerides 203 H, Cholesterol 108, LDL Cholesterol 34, VLDL Cholesterol 41 H, HDL Cholesterol 33 L 02/22/21 06:10: POC Glucose 128 H Cardiology Labs/Tests 02/22/21 05:38: WBC 8.6, RBC 5.42, Hgb 16.6 H, Hct 49.0, MCV 90.4, MCH 30.6, MCHC 33.9, Plt Count 275, MPV 8.9, Immature Gran % (Auto) 0.600, Neut % (Auto) 42.3 L, Lymph % (Auto) 41.1 H, [place] % (Auto) 8.9, Eos % (Auto) 5.5 H, Baso % (Auto) 1.6 H, Absolute Neuts (auto) 3.6, Nucleated RBC % 0 02/22/ 05:38: Sodium 136, Potassium 4.2, Chloride 107, Carbon Dioxide 24.0, Anion Gap 5, BUN 15, Creatinine 0.61 L, Est GFR (MDRD) Af Amer 179, Est GFR (MDRD) Non-Af 148, BUN/Creatinine Ratio 24.5 H, Glucose 124 H, Calcium 8.7, Triglycerides 203 H, Cholesterol 108, LDL Cholesterol 34, VLDL Cholesterol 41 H, HDL Cholesterol 33 L Rhythm: Sinus rhythm EKG: Sinus rhythm Cardiac Cath: CONCLUSIONS Elevated Left Ventricular End Diastolic Pressure Normal LV size, wall motion,and systolic function LVEF: by LV gram 65 % Single vessel CAD of the RCA: proximal: eccentric: 10 - 25 % stenosis RECOMMENDATIONS Risk factor modification Medical therapy DESCRIPTION OF PROCEDURE The patient arrived to the procedure lab. The risks and benefits of the procedure as well as a full description of our services here and current unavailability of surgical backup were fully explained to the patient and/or their significant other prior to the catheterization. The Timeout was completed, verifying the correct patient and procedure. The patient's procedural site was prepped and draped in the usual fashion. Local anesthetic was given subcutaneously to right radial region with Lidocaine 2%. Using a modified Seldinger technique, arterial access was obtained via the right radial artery, a 6Fr sheath was inserted. Left Coronary Artery selective angiography was performed in multiple views using a 5 Fr. 4.0 [place] catheter. Right Coronary Artery selective angiography was then performed in multiple views using a 5 Fr. JR 4 catheter.The arterial sheath was pulled and a TR Band was applied for hemostasis CORONARY ANGIOGRAPHY DOMINANCE: Right Dominant LEFT HEART ASSESSMENT Left Ventricular Ejection Fraction: by LV Gram 65 % Normal LV wall motion Elevated Left Ventricular End Diastolic Pressure LVEDP: 25 mmHg LEFT MAIN: Angiographically normal LEFT ANTERIOR DESCENDING ARTERY: Angiographically normal CIRCUMFLEX ARTERY: Angiographically normal RIGHT CORONARY ARTERY: PROX RCA: eccentric: 10 - 25 % Stenosis AORTIC ROOT: Angiographically normal Chest CT Scan: Physical Exam Const alert, oriented x3 and no apparent distress Orientation / Consciousness: awake HEENT normocephalic, head/scalp atraumatic and hearing grossly normal bilaterally Eyes PERRL, EOMs intact bilaterally and conjunctivae normal Neck full ROM, supple and no JVD Resp normal respiratory effort and clear to auscultation bilaterally Cardio regular rate, regular rhythm, S1 normal heart sound and S2 normal heart sound GI normal to inspection, nondistended, normoactive bowel sounds Extremity General Extremity: edema bilateral lower extremity Details: trace Peripheral Pulses: Yes radial pulses present right 2+ Neuro CN's II-XII intact bilaterally Psych mental status grossly normal Assessment & Plan Assessment/Plan (1) Unstable angina: PLAN: The patient presented with symptoms concerning for unstable angina. He underwent a rule out OR protocol which was negative. He underwent further evaluation with diagnostic cardiac catheterization earlier this day. He was not found to have angiographically significant CAD. His overall LV wall motion and systolic function appear to be preserved. Thus at the present time it appears that he has a non-CAD related etiology to explain his symptoms. (2) Hypertension: PLAN: The patient has a history of hypertension. His ARB dose will be increased to assist with his blood pressure control. (3) Diabetes mellitus, type 2: PLAN: The patient will continue evaluation care per internal medicine. (4) Tobacco dependence: PLAN: The patient has been encouraged to discontinue his tobacco use. (5) Obesity (BMI 35.0-39.9 without comorbidity): PLAN: Unfortunately the patient is obese. He states he is trying to adjust his diet to bring his medical diagnoses and his weight under better control. Addt'l Comments At the present time he will continue cardiovascular risk factor evaluation care as deemed appropriate. He should pursue non-CAD related etiologies of his chest discomfort. He will need to continue to follow with his primary care physician for further evaluation and care. The patient's case was discussed and reviewed with the patient, his spouse, and Dr. Mo. This note was generated using a voice recognition system and there may be incorrect words, spelling or punctuation that were not noted when reviewing the office note prior to saving.
== END 2021-02-22 10:23 | disposition home or self-care (01) ==
LOC: ED 11:13 → PCU 13:00
PROVIDERS: Admitting Provider Internal Medicine; Emergency Provider Emergency Medicine; Visit Provider Internal Medicine
DX: I25.110 Atherosclerotic heart disease of native coronary artery with unstable angina pectoris (principal); I11.0 Hypertensive heart disease with heart failure; I50.9 Heart failure, unspecified; E66.9 Obesity, unspecified; F17.210 Nicotine dependence, cigarettes, uncomplicated; Z79.899 Other long term (current) drug therapy; Z68.39 Body mass index [BMI] 39.0-39.9, adult; E11.9 Type 2 diabetes mellitus without complications
CPT/HCPCS: 36415; 71045; 80048; 80061; 82962; 83036; 83880; 84484; 85025; 85379; 87635; 93005; 93306; 93458; 96372; 99152; 99153; 99218; 99285; 99406; J7040; Q9957; Q9967; U0005; A4216; C1769; C1894; G0378; J3490; U0003

== ENCOUNTER 2025-06-16 07:02 | Emergency (ER) | payer OTHER, SELFPAY ==
[2025-06-16 07:02] VITALS: BP 143/89; PULSE 104; RESP 20; TEMP 36.4; O2SAT 100; BMI 34.9
--- NOTE | 2025-06-16 07:11 | RAD_ITS ---
PROCEDURE: CHEST PA AND LATERAL 06/16/2025 REASON FOR EXAM: CHEST PAIN TECHNIQUE: Procedure Code: RADCXR Modality: DX Procedure: CHEST PA AND LATERAL COMPARISON: AP chest of 02/21/2021. RAD/Chest PA and Lateral IMPRESSION: Lungs are somewhat hypoinflated. At the left mid to lower lung zone, increased markings are seen, concerning for the presence of pneumonitis. Less likely would be chronic changes in this area. No evidence of pulmonary edema. No pleural effusion or pneumothorax is seen. The cardiomediastinal silhouette is within the normal range. Mild thoracic spine degenerative changes are noted. No acute osseous change is evident. Reading Location: [place] [id number]
--- NOTE | 2025-06-16 07:11 | EKG12_ITS ---
Test Reason : Blood Pressure : */* mmHG Vent. Rate : 99 BPM Atrial Rate : 99 BPM P-R Int : 146 ms QRS Dur : 74 ms QT Int : 332 ms P-R-T Axes : 11 5 33 degrees QTcB Int : 426 ms Normal sinus rhythm Cannot rule out Septal infarct , age undetermined Abnormal ECG Confirmed by Avel Barrett ([id number]), image editor CLAUDIO DAMON ([id number]) on 06/18/2025 9:59:24 AM Referred By: Confirmed By: Avel Barrett
--- NOTE | 2025-06-16 07:18 | ED.VIS.CHEST ---
HPI History of Present Illness Chief Complaint: Chest Pain Narrative Narrative: Chief complaint and HPI: 55-year-old male with past medical history of CAD status post PCI, CHF, HTN, tobacco abuse presents for evaluation of chest pain. Onset of symptoms approximately 1 hour. Describes it as sharp and mid sternum but radiates to the left shoulder and arm as achy pain. Patient states the pain started while drinking coffee and smoking a cigarette. He took all of his daily medicines including a 81 mg aspirin. He states he recently had pneumonia approximately 1 month ago but these respiratory symptoms have resolved. He denies any fever, chills, shortness of breath, abdominal pain, nausea, vomiting. Review of systems: See HPI Medications: As listed on the chart Allergies: As listed on the chart PFSH: Per chart Vital signs: As listed on the chart. Reviewed. Physical exam: Gen: A&O x3, NAD Head: Normocephalic, atraumatic Eyes: No sclera icterus, conjunctiva clear ENT: Moist mucous membranes Neck: Trachea midline, No JVD CV: RRR, no murmurs, no peripheral edema Resp: Lungs CTA BL, no w/r/c GI: Abd soft, non-distended, non-tender, no r/r/g Musc: Full ROM, no deformity Skin: Warm, dry Neuro: Alert, oriented, grossly intact, sensation intact Psych: Cooperative, appropriate mood and affect [facility] Medical History (Updated 03/02/21 @ 00:00 by Background Daemon) Congestive heart failure (CHF) Hypertension Home Medications ?Medication ?Instructions ?Recorded ?Last Taken ?Type aspirin 81 mg tablet 81 mg PO DAILY antiplatlet 02/21/21 06/16/25 History atorvastatin 40 mg tablet 40 mg PO QHS #90 tabs 02/22/21 06/16/25 Rx empagliflozin 25 mg tablet 12.5 mg PO DAILY heart 06/16/25 06/16/25 History glipizide 5 mg tablet 5 mg PO BID blood sugar 06/16/25 06/16/25 History lisinopril 10 mg tablet 10 mg PO DAILY blood pressure 06/16/25 06/16/25 History metoprolol succinate 50 mg 50 mg PO DAILY 06/16/25 06/16/25 History tablet,extended release 24 hr multivitamin (Daily Multi-Vitamin 1 tab PO DAILY suppplement 06/16/25 06/16/25 History tablet) pregabalin 75 mg capsule (Lyrica) 75 mg PO BID nerve pain 06/16/25 06/16/25 History semaglutide 1 mg/dose (4 mg/3 mL) 1 mg subcut QWEEK weight loss 06/16/25 06/06/25 History subcutaneous pen injector (Ozempic) sertraline 100 mg tablet 100 mg PO DAILY depression 06/16/25 06/16/25 History ticagrelor 90 mg tablet 90 mg PO BID 06/16/25 06/16/25 History Allergy/AdvReac Type Severity Reaction Status Date / Time No Known Allergies Allergy Verified 06/16/25 07:02 Family History (Updated 02/21/21 @ 11:[address] José Antonio Mo MD) Father Heart disease Surgical History (Updated 02/22/21 @ 08:47 by Afua Ivory) History of left heart catheterization (LHC) (~02/22/21) Social History Smoking Status: Current every day smoker tobacco type: cigarettes EXAM Physical Exam Const Vital Signs: 06/16/25 07:02 06/16/25 08:02 06/16/25 09:00 Temperature 97.5 F L Temperature Source Temporal Pulse Rate 104 H 94 90 Respiratory Rate 20 H 16 Blood Pressure 143/89 H 126/71 H 116/75 Blood Pressure Mean 107 89 88 Pulse Ox 100 100 Oxygen Delivery Method Room Air 06/16/25 10:00 Temperature Temperature Source Pulse Rate 84 Respiratory Rate Blood Pressure 81/65 L Blood Pressure Mean 70 Pulse Ox Oxygen Delivery Method MDM MDM MDM Narrative Medical decision making narrative: 55-year-old male with past medical history of CAD status post PCI, CHF, HTN, tobacco abuse presents for evaluation of chest pain. Onset of symptoms approximately 1 hour. Describes it as sharp and mid sternum but radiates to the left shoulder and arm as achy pain. Patient states the pain started while drinking coffee and smoking a cigarette. He took all of his daily medicines including a 81 mg aspirin. On chart review, patient had a cardiac catheterization on 02/23/2020 one in which she had mild stenosis of the proximal RCA. His last echocardiogram was 02/21/2021 in which his EF was 65%. However patient states his last cardiac catheterization was in [place] and November 2024 in which he received PCI. Differential diagnosis includes but is not limited to arrhythmia, ACS, pleurisy, myofascial spasm, PE, electrolyte abnormality. Aspirin and nitro ordered. Patient is on Brilinta due to his previous PCI. CBC with mild leukocytosis of 12.1. Patient has hemoconcentration of 16.8. Could be seen with dehydration. Platelets unremarkable. Coagulation panel unremarkable. D-dimer unremarkable. BMP relatively unremarkable. Troponin unremarkable x 2. On reevaluation patient's chest pain has resolved. He is currently asymptomatic. Based on patient's heart score, he is a 4 which places him at moderate risk. Given patient's recent PCI with chest pain and moderate heart score, I did consult our multiple wire sawyer, Dr. Barrett. Given patient's unremarkable workup and currently asymptomatic okay with discharge home. He is to be seen by his PCP or multiple wire sawyer within the next week. Patient understand the plan. Patient will discharge home. Return precautions explained. EKG: Interpreted by me/EM physician: EKG shows normal sinus rhythm without any acute ischemic changes. Heart rate 99. Normal QTc. Diagnostic: Interpreted by me/EM physician: Chest x-ray without pneumonia, effusion, cardiomegaly, pneumothorax. Per radiology there is increased markings in the left mid to lower lung zone, concerning for the presence of pneumonitis. Impression: 1. Chest pain 2. Mild hemoconcentration Lab Data Labs: Laboratory Results - last 24 hr 06/16/25 06/16/25 07:08 09:20 WBC 12.2 H RBC 5.59 Hgb 16.8 H Hct 49.4 MCV 88.4 MCH 30.1 MCHC 34.0 RDW Std Deviation 43.7 RDW Coeff of Sebastien 13.5 Plt Count 273 MPV 8.7 Immature Gran % (Auto) 0.700 Neut % (Auto) 62.5 Lymph % (Auto) 26.6 [place] % (Auto) 5.5 Eos % (Auto) 3.7 Baso % (Auto) 1.0 Absolute Neuts (auto) 7.7 Absolute Lymphs (auto) 3.25 Nucleated RBC % 0 PT 12.1 INR 0.9 APTT 26.6 D-Dimer Quant (PE/DVT) < 0.27 L Sodium 134 Potassium 4.6 Chloride 102 Carbon Dioxide 18.2 L Anion Gap 14 BUN 15 Creatinine 0.70 Estim Creat Clear Calc 132.41 Est GFR (MDRD) Non-Af 109 BUN/Creatinine Ratio 20.7 H Glucose 158 H Calcium 9.2 Troponin T High Sens 8 Troponin T Hi Sens 2 Hr 7 Radiography Diagnostic Testing: Clinical Impression(s) from Imaging Studies Chest X-Ray 06/16/25 07:11 IMPRESSION: Lungs are somewhat hypoinflated. At the left mid to lower lung zone, increased markings are seen, concerning for the presence of pneumonitis. Less likely would be chronic changes in this area. No evidence of pulmonary edema. No pleural effusion or pneumothorax is seen. The cardiomediastinal silhouette is within the normal range. Mild thoracic spine degenerative changes are noted. No acute osseous change is evident. Reading Location: [place] [id number] Discharge Plan Triage Chief Complaint: Chest Pain ED Provider: Omar Verde Dx/Rx/DC Orders Prescriptions: No Action aspirin 81 mg Tablet 81 mg PO DAILY atorvastatin 40 mg tablet 40 mg PO QHS Qty: 90 0RF pregabalin [Lyrica] 75 mg capsule 75 mg PO BID ticagrelor 90 mg tablet 90 mg PO BID glipizide 5 mg tablet 5 mg PO BID multivitamin [Daily Multi-Vitamin] Tablet 1 tab PO DAILY metoprolol succinate 50 mg tablet extended release 24 hr 50 mg PO DAILY lisinopril 10 mg tablet 10 mg PO DAILY empagliflozin 25 mg tablet 12.5 mg PO DAILY sertraline 100 mg tablet 100 mg PO DAILY Ozempic 1 mg/dose (4 mg/3 mL) pen injector 1 mg subcut QWEEK [facility] [facility] [Primary Care Provider, None] Print Language: Frisian
[2025-06-16 07:22] LABS: Hematocrit 49.4 % (40-54); Hemoglobin 16.8 g/dL (13.0-16.5); Immature Granulocytes Count 0.080 X10^3/uL (0.0-0.0); Mean Corp Hgb Conc 34.0 g/dL (32-36); Mean Corpuscular Volume 88.4 fL (80-94); Mean Platelet Vol. 8.7 fl (6.2-12.0); NRBC Flagged by Analyzer 0 % (0-5); Platelet Count 273 K/mm3 (150-450); RBC Distribution Width CV 13.5 % (11.6-14.6); RBC Distribution Width SD 43.7 fl (35.1-43.9); Red Blood Count 5.59 M/mm3 (4.6-6.2); White Blood Count 12.2 K/mm3 (4.4-11.0)
[2025-06-16 07:49] LABS: Anion Gap 14 (5-15); BUN 15 mg/dL (4-19); BUN/Creat Ratio 20.7 RATIO (10-20); Calcium,Total 9.2 mg/dL (7.6-11.0); Carbon Dioxide 18.2 mmol/L (21.0-32.0); Chloride 102 mmol/L (98-108); Estimated Creatinine Clearance 132.41 ml/min (50-250); Glucose 158 mg/dL (70-99); Potassium 4.6 mmol/L (3.3-5.1); Troponin T High Sensitivity 8 ng/L (<=22)
[2025-06-16 08:02] VITALS: BP 126/71; PULSE 94; RESP 16; O2SAT 100
[2025-06-16 08:16] LABS: D-Dimer Quantitative (DVT/PE) < 0.27 FEU/ug/m (0.27-0.49)
[2025-06-16 08:26] LABS: Partial Thromboplast Time 26.6 Seconds (24.1-36.2); Prothrombin Time (Protime)PT. 12.1 SECONDS (11.7-14.9)
[2025-06-16 09:00] VITALS: BP 116/75; PULSE 90
[2025-06-16 10:00] VITALS: BP 81/65; PULSE 84
[2025-06-16 10:17] LABS: Troponin T High Sens 2 HR 7 ng/L (<=22)
[2025-06-16 11:09] VITALS: BP 98/84; PULSE 82; RESP 23; TEMP 36.6; O2SAT 97
== END 2025-06-16 11:13 | disposition home or self-care (01) ==
PROVIDERS: Emergency Provider Surgery; Visit Provider Surgery
DX: R07.9 Chest pain, unspecified (principal); M25.512 Pain in left shoulder; I25.10 Atherosclerotic heart disease of native coronary artery without angina pectoris; Z95.5 Presence of coronary angioplasty implant and graft; I10 Essential (primary) hypertension; F17.210 Nicotine dependence, cigarettes, uncomplicated; Z82.49 Family history of ischemic heart disease and other diseases of the circulatory system
CPT/HCPCS: 71046; 80048; 84484; 85025; 85379; 85610; 85730; 93005; 99284; A4216